=== PATIENT | female | born 1935 | race Caucasian/White ===

== ENCOUNTER 2024-01-29 00:13 | Emergency (ER) | payer MEDICARE, OTHER ==
[~2024-01-29] VITALS: Ht 167.6 cm; Wt 52.2 kg
[~2024-01-29 00:13] MED LIST: ALBU0.084 NEB; CAR3125T PO; DIG0125T PO; DIGO0.1262 PO; ENAL1TAB43 PO; FERR-7 PO; FURO1TAB33 PO; LEVO25TA6 PO; METO25TA5 PO; MULT-1018 PO; POT20T PO; RIVA20TA PO
[2024-01-29 01:55] LABS: INR 1.03 (0.9-1.15); Partial Thromboplastin Time 29.3 SEC (24.5-34.5); Prothrombin Time 10.9 sec (9.3-11.8)
[2024-01-29 03:31] VITALS: BP 111/78; RESP 22; TEMP 98.6; O2SAT 96
[2024-01-29 04:35] VITALS: PULSE 75
[2024-01-29] MEDS: BACITRACIN TOP OINT 1 UD PKG TOP ONE (05:22)
== END 2024-01-29 05:34 | disposition home or self-care (01) ==
LOC: ER 00:13 → EDBD 00:13 → ER 05:30
DX: S00.12XA Contusion of left eyelid and periocular area, initial encounter (principal); I48.91 Unspecified atrial fibrillation; D68.318 Other hemorrhagic disorder due to intrinsic circulating anticoagulants, antibodies, or inhibitors; I11.0 Hypertensive heart disease with heart failure; J44.9 Chronic obstructive pulmonary disease, unspecified; E11.9 Type 2 diabetes mellitus without complications; Z79.02 Long term (current) use of antithrombotics/antiplatelets; Z79.899 Other long term (current) drug therapy; Z90.49 Acquired absence of other specified parts of digestive tract; W01.0XXA Fall on same level from slipping, tripping and stumbling without subsequent striking against object, initial encounter; Y93.89 Activity, other specified; Y92.89 Other specified places as the place of occurrence of the external cause; Y99.8 Other external cause status
CPT/HCPCS: 36415; 70450; 85610; 85730; 93005

== ENCOUNTER 2024-04-09 17:40 | Inpatient (IN) | payer OTHER ==
[~2024-04-09] VITALS: Ht 167.6 cm; Wt 46.0 kg
[~2024-04-09 17:40] MED LIST changes: +ALL100T PO; +ASPI1TAB20 PO; +ATOR20TA50 PO; +FERR325T20 PO; +FOLI-119 PO; +GABA-1308 PO; +HYDR500C3 PO; +LEVO75TA6 PO
[2024-04-09 20:45] LABS: Basophils # (auto) 0.1 10 ^3/uL (0-0.2); Basophils % (auto) 0.6 % (0.0-2.0); Eosinophils # (auto) 0.2 10 ^3/uL (0-0.8); Hemoglobin 9.4 g/dL (12.2-16.2); Red Cell Distribution Width 16.2 % (11.8-14.3)
[2024-04-09 20:47] LABS: Eosinophils % (auto) 1.8 % (0.0-7.0); Hematocrit 28.9 % (36.0-46.0); Lymphocytes # (auto) 1.2 10 ^3/uL (0.4-5.4); Lymphocytes % (auto) 9.2 % (10.0-50.0); Mean Corpuscular Hemoglobin 38.7 pg (28.0-32.0); Mean Corpuscular Hgb Conc. 32.6 g/dL (32.0-36.0); Mean Corpuscular Volume 118.6 fL (80.0-100.0); Monocytes % (auto) 7.6 % (0.0-12.0); Neutrophils # (auto) 10.4 10 ^3/uL (1.6-8.6); Neutrophils % (auto) 80.8 % (37.0-80.0); Red Blood Cells 2.43 10^6/uL (4.0-5.20); White Blood Cell 12.9 10^3/uL (4.4-10.8)
[2024-04-09 20:56] LABS: Platelet Count (auto) 956 10^3/uL (140-450)
[2024-04-09 21:03] LABS: Alanine Aminotransferase 21 U/L (7-40); Alkaline Phosphatase 76 U/L (46-116); Anion Gap 9 (5-15); Aspartate Aminotransferase 26 U/L (13-40); BUN/Creatinine Ratio 12.7 (10.0-20.0); Blood Urea Nitrogen 24 mg/dL (9-23); Calcium 9.4 mg/dL (8.7-10.4); Carbon Dioxide 25 mmol/L (20-30); Chloride 111 mmol/L (98-107); Glucose 109 mg/dL (74-106); Partial Thromboplastin Time 26.5 SEC (24.5-34.5); Potassium 3.9 mmol/L (3.5-5.1); Prothrombin Time 10.6 sec (9.3-11.8); Sodium 145 mmol/L (136-145)
[2024-04-09 21:04] LABS: Albumin 4.4 g/dL (3.2-4.8); Bilirubin, Total 0.5 mg/dL (0.2-1.0); Total Protein 6.9 g/dL (5.7-8.2)
[2024-04-09 21:13] LABS: Large Platelets FEW; Macrocytosis Marked; Platelet Estimate Markedly Increased
[2024-04-09 21:30] VITALS: PULSE 95; RESP 20; O2SAT 100
[2024-04-10] MEDS: TEMAZEPAM 15 MG CAP PO ONE (03:44)
[2024-04-10 07:30] VITALS: PULSE 97; RESP 22; O2SAT 100
[2024-04-10] MEDS: ASPirin 325 MG TAB PO ONE (09:07)
[2024-04-10] MEDS: SODIUM CHLORIDE 0.9% 1,000 ML IV ONE (09:07)
[2024-04-10] MEDS: CLINDAMYCIN 300MG IV 50 ML IV ONE (09:08)
[2024-04-10] MEDS ORDERED: SODIUM CHLORIDE 0.9% 1,000 ML IV SCH (09:45)
[2024-04-10] MEDS ORDERED: MORPHINE SULFATE INJ 2 MG/ml SYRG IV PRN (09:45)
[2024-04-10] MEDS ORDERED: DOCUSATE SOD 100 MG CAP PO PRN (09:45)
[2024-04-10] MEDS ORDERED: NITROGLYCERIN 0.4 MG SL TAB SL PRN ×2 (09:45)
[2024-04-10] MEDS ORDERED: ONDANSETRON HCL 4 MG/2 ML VIAL IV PRN ×2 (09:45)
[2024-04-10] MEDS: ASPirin 81 mg TAB PO SCH (10:00)
[2024-04-10] MEDS: PIPERACILLIN-TAZOB 3.375GM 100 ML IV ONE (10:01)
[2024-04-10 11:13] LABS: INR 1.03 (0.9-1.15); Prothrombin Time 10.9 sec (9.3-11.8)
[2024-04-10] MEDS: CLINDAMYCIN 300MG IV 50 ML IV SCH (14:00)
[2024-04-10 15:51] LABS: Triglycerides 101 mg/dL (< 150)
[2024-04-10 15:52] LABS: LDL Cholesterol 50 mg/dL (< 100)
[2024-04-10 15:53] LABS: Cholesterol 119 mg/dL (< 200); HDL Cholesterol 52 mg/dL (40-59)
[2024-04-10] MEDS: SODIUM CHLORIDE 0.9% 1,000 ML IV SCH (16:03)
[2024-04-10 17:30] LABS: Urine Bacteria MANY /hpf (None Seen); Urine Blood Negative /uL (Negative); Urine Clarity Clear (Clear); Urine Color Yellow (Yellow); Urine Mucus FEW (None Seen); Urine Protein, UAD 1+ (Negative); Urine Specific Gravity 1.025 (1.001-1.035); Urine Urobilinogen Normal (Negative); Urine WBC 2 /hpf (0 - 5); Urine pH 5.5 (5.0-9.0)
[2024-04-10 19:25] VITALS: PULSE 97; RESP 20; O2SAT 96
[2024-04-10] MEDS: ATORVASTATIN 20 MG TAB PO SCH (22:55)
[2024-04-10] MEDS: APIXABAN 2.5 MG TAB PO SCH (22:55)
[2024-04-10] MEDS: METOPROLOL TARTRATE 25 MG TAB PO SCH (22:57)
[2024-04-11] VITALS (8 sets, daily range): BP systolic 133–157; BP diastolic 59–139; PULSE 76–121; RESP 16–20; TEMP 96.6–98.3; O2SAT 89–100
[2024-04-11] MEDS ORDERED: AMIO200T33 PO (01:59)
[2024-04-11] MEDS ORDERED: SERT25TA84 PO (02:00)
[2024-04-11] MEDS ORDERED: FOLITAB22 PO (02:03)
[2024-04-11 12:03] LABS: Basophils # (auto) 0.1 10 ^3/uL (0-0.2); Basophils % (auto) 0.5 % (0.0-2.0); Eosinophils # (auto) 0.1 10 ^3/uL (0-0.8); Eosinophils % (auto) 0.4 % (0.0-7.0); Hemoglobin 8.8 g/dL (12.2-16.2); Lymphocytes # (auto) 0.7 10 ^3/uL (0.4-5.4); Red Blood Cells 2.16 10^6/uL (4.0-5.20)
[2024-04-11 12:07] LABS: Hematocrit 26.4 % (36.0-46.0); Lymphocytes % (auto) 4.8 % (10.0-50.0); Mean Corpuscular Hemoglobin 40.6 pg (28.0-32.0); Mean Corpuscular Hgb Conc. 33.1 g/dL (32.0-36.0); Mean Corpuscular Volume 122.6 fL (80.0-100.0); Monocytes # (auto) 0.8 10 ^3/uL (0-1.3); Neutrophils # (auto) 12.2 10 ^3/uL (1.6-8.6); Neutrophils % (auto) 88.3 % (37.0-80.0); Red Cell Distribution Width 17.2 % (11.8-14.3); White Blood Cell 13.8 10^3/uL (4.4-10.8)
[2024-04-11 12:16] LABS: Platelet Count (auto) 947 10^3/uL (140-450)
[2024-04-11 12:24] LABS: Alanine Aminotransferase 22 U/L (7-40); Albumin 4.3 g/dL (3.2-4.8); Alkaline Phosphatase 84 U/L (46-116); Anion Gap 11 (5-15); Aspartate Aminotransferase 27 U/L (13-40); BUN/Creatinine Ratio 9.4 (10.0-20.0); Bilirubin, Total 0.7 mg/dL (0.2-1.0); Blood Urea Nitrogen 15 mg/dL (9-23); Calcium 9.2 mg/dL (8.7-10.4); Carbon Dioxide 20 mmol/L (20-31); Chloride 113 mmol/L (98-107); Cholesterol 133 mg/dL (< 200); Glucose 112 mg/dL (74-106); HDL Cholesterol 59 mg/dL (40-59); LDL Cholesterol 53 mg/dL (< 100); Potassium 3.7 mmol/L (3.5-5.1); Sodium 144 mmol/L (136-145); Triglycerides 124 mg/dL (< 150)
[2024-04-11 12:25] LABS: Total Protein 6.9 g/dL (5.7-8.2)
[2024-04-11] MEDS: cefTRIAXone 1GM/50ML D5W 50 ML IV SCH (13:25)
[2024-04-11] MEDS: METOPROLOL TARTRATE 25 MG TAB PO SCH (23:54)
[2024-04-12] VITALS (7 sets, daily range): BP systolic 135–148; BP diastolic 69–87; PULSE 66–107; RESP 17–20; TEMP 97.4–98; O2SAT 91–99
[2024-04-12] MEDS: ACETAMINOPHEN 325 MG TAB PO PRN (00:25)
[2024-04-12] MEDS: EMPAGLIFLOZIN 10 MG TAB PO SCH (09:20)
[2024-04-12] MEDS: POTASSIUM EFFERVESENT TAB 25 MEQ PO ONE (09:21)
[2024-04-12 11:15] LABS: Red Blood Cells 2.36 10^6/uL (4.0-5.20)
[2024-04-12 11:19] LABS: Basophils # (auto) 0.1 10 ^3/uL (0-0.2); Basophils % (auto) 0.5 % (0.0-2.0); Eosinophils # (auto) 0.1 10 ^3/uL (0-0.8); Eosinophils % (auto) 0.3 % (0.0-7.0); Hematocrit 29.5 % (36.0-46.0); Hemoglobin 9.4 g/dL (12.2-16.2); Lymphocytes # (auto) 0.5 10 ^3/uL (0.4-5.4); Lymphocytes % (auto) 2.7 % (10.0-50.0); Mean Corpuscular Hemoglobin 39.8 pg (28.0-32.0); Mean Corpuscular Hgb Conc. 31.8 g/dL (32.0-36.0); Monocytes # (auto) 1.6 10 ^3/uL (0-1.3); Monocytes % (auto) 7.6 % (0.0-12.0); Neutrophils # (auto) 18.2 10 ^3/uL (1.6-8.6); Neutrophils % (auto) 88.9 % (37.0-80.0); Nucleated Red Blood Cells % 0.3 %; Red Cell Distribution Width 17.7 % (11.8-14.3); White Blood Cell 20.5 10^3/uL (4.4-10.8)
[2024-04-12 11:23] LABS: Chloride 111 mmol/L (98-107); Potassium 4.3 mmol/L (3.5-5.1); Sodium 142 mmol/L (136-145)
[2024-04-12 11:24] LABS: Anion Gap 11 (5-15); Carbon Dioxide 20 mmol/L (20-31)
[2024-04-12 11:25] LABS: Platelet Count (auto) 971 10^3/uL (140-450)
[2024-04-12 11:29] LABS: BUN/Creatinine Ratio 11.5 (10.0-20.0); Blood Urea Nitrogen 18 mg/dL (9-23); Glucose 120 mg/dL (74-106)
[2024-04-12 11:52] LABS: Macrocytosis Moderate; Platelet Estimate Markedly Increased
[2024-04-13] VITALS (8 sets, daily range): BP systolic 106–129; BP diastolic 51–84; PULSE 93–105; RESP 16–18; TEMP 97.1–98.2; O2SAT 0–98
[2024-04-14] VITALS (8 sets, daily range): BP systolic 130–159; BP diastolic 48–109; PULSE 71–104; RESP 16–20; TEMP 97.7–98.7; O2SAT 92–99
[2024-04-15 08:00] VITALS: PULSE 101; PULSE 92; RESP 18; O2SAT 96
[2024-04-15 09:26] VITALS: BP 123/64; PULSE 101; RESP 17; TEMP 98; O2SAT 96
[2024-04-15] MEDS ORDERED: LEVO500T91 PO (12:33)
[2024-04-15 13:00] VITALS: BP 133/88; PULSE 75; RESP 20; TEMP 98.2; O2SAT 99
[2024-04-15 16:48] VITALS: BP 141/71; PULSE 65; RESP 19; TEMP 98; O2SAT 89
[2024-04-18] MEDS ORDERED: SERT-206 PO (17:57)
== END 2024-04-15 18:08 | disposition home or self-care (01) | DRG 871 ==
LOC: ER 17:40 → EDBD 17:40 → TELE 04-10 09:45 → TELE-WESTW 04-10 21:51
PROVIDERS: ADMIT Nurse Practitioner Family; ATTEND Family Medicine
DX: A41.9 Sepsis, unspecified organism (principal); I50.23 Acute on chronic systolic (congestive) heart failure; N39.0 Urinary tract infection, site not specified; I13.0 Hypertensive heart and chronic kidney disease with heart failure and stage 1 through stage 4 chronic kidney disease, or unspecified chronic kidney disease; I42.0 Dilated cardiomyopathy; N17.9 Acute kidney failure, unspecified; D75.839 Thrombocytosis, unspecified; E11.22 Type 2 diabetes mellitus with diabetic chronic kidney disease; I07.1 Rheumatic tricuspid insufficiency; I27.20 Pulmonary hypertension, unspecified; I48.0 Paroxysmal atrial fibrillation; J44.9 Chronic obstructive pulmonary disease, unspecified; S01.01XA Laceration without foreign body of scalp, initial encounter; F03.90 Unspecified dementia, unspecified severity, without behavioral disturbance, psychotic disturbance, mood disturbance, and anxiety; W18.39XA Other fall on same level, initial encounter; D63.8 Anemia in other chronic diseases classified elsewhere; E78.00 Pure hypercholesterolemia, unspecified; E03.9 Hypothyroidism, unspecified; Z90.49 Acquired absence of other specified parts of digestive tract; Y93.89 Activity, other specified; Y92.89 Other specified places as the place of occurrence of the external cause; Y99.8 Other external cause status; Z79.01 Long term (current) use of anticoagulants; E11.65 Type 2 diabetes mellitus with hyperglycemia; N18.9 Chronic kidney disease, unspecified
CPT/HCPCS: 36415; 70450; 71045; 80048; 80053; 80061; 80162; 81001; 83605; 83735; 83880; 84443; 84484; 85025; 85610; 85730; 87040; 93005; 93306; 97110; 97116; 97163; 97530; G0378; J2543; J3490

== ENCOUNTER 2024-04-20 17:24 | Inpatient (IN) | payer OTHER ==
[~2024-04-20] VITALS: Ht 165.1 cm; Wt 44.8 kg
[~2024-04-20 17:24] MED LIST changes: -ALBU0.084 NEB; +AMIO200T33 PO; -CAR3125T PO; -DIG0125T PO; -DIGO0.1262 PO; -ENAL1TAB43 PO; -FERR-7 PO; -FURO1TAB33 PO; -LEVO25TA6 PO; +LEVO500T91 PO; -MULT-1018 PO; -POT20T PO; -RIVA20TA PO; +SERT-206 PO; +SERT25TA84 PO
[2024-04-20 18:56] VITALS: PULSE 117; RESP 22
[2024-04-20 19:35] VITALS: PULSE 112; RESP 20; O2SAT 92
[2024-04-20 19:36] LABS: Basophils # (auto) 0.1 10 ^3/uL (0-0.2); Basophils % (auto) 0.4 % (0.0-2.0); Eosinophils # (auto) 0 10 ^3/uL (0-0.8); Hematocrit 26.5 % (36.0-46.0); Hemoglobin 8.5 g/dL (12.2-16.2); Lymphocytes # (auto) 0.8 10 ^3/uL (0.4-5.4); Lymphocytes % (auto) 5.2 % (10.0-50.0); Mean Corpuscular Hemoglobin 38.1 pg (28.0-32.0); Mean Corpuscular Volume 119.1 fL (80.0-100.0); Monocytes # (auto) 0.8 10 ^3/uL (0-1.3); Monocytes % (auto) 5.4 % (0.0-12.0); Nucleated Red Blood Cells % 0.3 %; Platelet Count (auto) 587 10^3/uL (140-450); Red Blood Cells 2.23 10^6/uL (4.0-5.20); Red Cell Distribution Width 18.3 % (11.8-14.3); White Blood Cell 14.6 10^3/uL (4.4-10.8)
[2024-04-20 19:46] LABS: Alanine Aminotransferase 56 U/L (7-40); Albumin 3.8 g/dL (3.2-4.8); Alkaline Phosphatase 91 U/L (46-116); Anion Gap 14 (5-15); Aspartate Aminotransferase 78 U/L (13-40); BUN/Creatinine Ratio 11.4 (10.0-20.0); Bilirubin, Total 0.9 mg/dL (0.2-1.0); Blood Urea Nitrogen 32 mg/dL (9-23); Calcium 9.1 mg/dL (8.7-10.4); Carbon Dioxide 19 mmol/L (20-31); Chloride 115 mmol/L (98-107); Glucose 107 mg/dL (74-106); Lipase 44 U/L (12-53); Potassium 4.4 mmol/L (3.5-5.1); Sodium 148 mmol/L (136-145); Total Protein 6.1 g/dL (5.7-8.2)
[2024-04-20 19:56] LABS: Anisocytosis Slight
[2024-04-20 19:57] LABS: Large Platelets FEW; Macrocytosis Moderate; Ovalocytes FEW; Platelet Estimate Increa; Polychromasia Slight; Stomatocytes Few
[2024-04-21] VITALS (10 sets, daily range): BP systolic 96–150; BP diastolic 68–101; PULSE 63–120; RESP 17–22; TEMP 95.1–97.7; O2SAT 92–97
[2024-04-21] MEDS ORDERED: IPRATROPIUM BROM 0.5 MG/2.5ML INH SOL NEB PRN (00:15)
[2024-04-21] MEDS ORDERED: ALBUTEROL SULF 2.5 MG/0.5ML(0.5%) NEB SOLN NEB PRN (00:15)
[2024-04-21] MEDS ORDERED: VANCOMYCIN PER PHARMACY 0 MG IV SCH (00:15)
[2024-04-21 01:49] LABS: INR 1.41 (0.9-1.15); Partial Thromboplastin Time 33.9 SEC (24.5-34.5); Prothrombin Time 14.6 sec (9.3-11.8)
[2024-04-21 02:04] LABS: Urine Bacteria FEW /hpf (None Seen); Urine Blood 1+ /uL (Negative); Urine Clarity Clear (Clear); Urine Color Yellow (Yellow); Urine Hyaline Cast MANY /lpf (0 - 2); Urine Mucus FEW (None Seen); Urine Protein, UAD 1+ (Negative); Urine Specific Gravity 1.023 (1.001-1.035); Urine Urobilinogen Normal (Negative); Urine WBC 4 /hpf (0 - 5); Urine pH 5.5 (5.0-9.0)
[2024-04-21] MEDS: LACTATED RINGER'S 500 ML IV ONE (02:08)
[2024-04-21] MEDS: MEROPENEM 500MG IVPB 50 ML IV ONE (04:28)
[2024-04-21 04:55] LABS: Chloride 116 mmol/L (98-107); Potassium 3.8 mmol/L (3.5-5.1); Sodium 148 mmol/L (136-145)
[2024-04-21 04:56] LABS: Anion Gap 14 (5-15); Carbon Dioxide 18 mmol/L (20-31)
[2024-04-21] MEDS: VANCOMYCIN 1GM/200ML PREMIX 200 ML IV ONE (05:00)
[2024-04-21 05:01] LABS: BUN/Creatinine Ratio 10.9 (10.0-20.0); Blood Urea Nitrogen 30 mg/dL (9-23); Glucose 89 mg/dL (74-106)
[2024-04-21 05:03] LABS: % Iron Saturation 60.9 % (15-50)
[2024-04-21 05:07] LABS: Ferritin 1027.2 ng/mL (10-291)
[2024-04-21 05:19] LABS: Rapid Influenza A Negative (Negative); Rapid Influenza B Negative (Negative)
[2024-04-21] MEDS: InsuLIN REG 1unit/0.01ml Soln (100units/ml) SC SCH (06:00)
[2024-04-21] MEDS: ACCU-CHEK COMFORT CURVE STRIP VI SCH (07:12)
[2024-04-21 08:33] LABS: Hematocrit 30.1 % (36.0-46.0); Hemoglobin 9.6 g/dL (12.2-16.2); Mean Corpuscular Hemoglobin 38.9 pg (28.0-32.0); Mean Corpuscular Hgb Conc. 31.9 g/dL (32.0-36.0); Mean Corpuscular Volume 121.9 fL (80.0-100.0); Platelet Count (auto) 577 10^3/uL (140-450); Red Blood Cells 2.47 10^6/uL (4.0-5.20); Red Cell Distribution Width 19.1 % (11.8-14.3); White Blood Cell 15.9 10^3/uL (4.4-10.8)
[2024-04-21 08:35] LABS: Band Neutrophils % (manual) 0; Basophils % (manual) 0 (0.0-2.0); Blast Cells 0; Eosinophils % (manual) 0 (0-7); Metamyelocytes % 0; Myelocytes % 0; Promyelocytes % 0; Reactive Lymphocytes 0
[2024-04-21] MEDS: MEROPENEM 500MG IVPB 50 ML IV SCH (09:56)
[2024-04-21 11:13] LABS: Anisocytosis Slight; Lymphocytes % (manual) 1 (10.0-50.0); Macrocytosis Moderate; Monocytes % (manual) 8 (0-12); Platelet Estimate Increased
[2024-04-21 11:40] LABS: Folate (Folic Acid) > 48.00 ng/mL (>5.38)
[2024-04-21 11:44] LABS: CRP High Sensitivity 0.36 mg/dL (<1.0); Magnesium 2.6 mg/dL (1.6-2.6)
[2024-04-21 11:46] LABS: Phosphorus 5.2 mg/dL (2.4-5.1)
[2024-04-21 12:17] LABS: Uric Acid 7.8 mg/dL (3.1-7.8)
[2024-04-21 17:36] LABS: Erythrocyte Sedimentation Rate 12 mm/hr (0-20)
[2024-04-21] MEDS: DEXTROSE (50%) 50ML SYRG IV PRN (18:19)
[2024-04-21] MEDS: APIXABAN 2.5 MG TAB PO SCH (21:46)
[2024-04-22] VITALS (10 sets, daily range): BP systolic 101–132; BP diastolic 56–81; PULSE 50–101; RESP 16–19; TEMP 97–98.8; O2SAT 92–96
[2024-04-22 07:37] LABS: Hemoglobin 8.7 g/dL (12.2-16.2)
[2024-04-22 07:38] LABS: Chloride 121 mmol/L (98-107); Potassium 3.8 mmol/L (3.5-5.1)
[2024-04-22 07:39] LABS: Anion Gap 9 (5-15); Carbon Dioxide 23 mmol/L (20-31)
[2024-04-22 07:40] LABS: Basophils # (auto) 0 10 ^3/uL (0-0.2); Basophils % (auto) 0.3 % (0.0-2.0); Eosinophils # (auto) 0 10 ^3/uL (0-0.8); Eosinophils % (auto) 0.4 % (0.0-7.0); Lymphocytes # (auto) 0.5 10 ^3/uL (0.4-5.4); Lymphocytes % (auto) 5.3 % (10.0-50.0); Mean Corpuscular Hemoglobin 39.5 pg (28.0-32.0); Mean Corpuscular Hgb Conc. 32.3 g/dL (32.0-36.0); Mean Corpuscular Volume 122.1 fL (80.0-100.0); Monocytes # (auto) 0.6 10 ^3/uL (0-1.3); Monocytes % (auto) 6.4 % (0.0-12.0); Neutrophils # (auto) 8.4 10 ^3/uL (1.6-8.6); Neutrophils % (auto) 87.6 % (37.0-80.0); Nucleated Red Blood Cells % 0.3 %; Platelet Count (auto) 484 10^3/uL (140-450); Red Blood Cells 2.21 10^6/uL (4.0-5.20); White Blood Cell 9.6 10^3/uL (4.4-10.8)
[2024-04-22 07:43] LABS: INR 1.25 (0.9-1.15); Partial Thromboplastin Time 31.9 SEC (24.5-34.5); Red Cell Distribution Width 18.7 % (11.8-14.3)
[2024-04-22 07:44] LABS: BUN/Creatinine Ratio 14.3 (10.0-20.0); Blood Urea Nitrogen 37 mg/dL (9-23); Glucose 90 mg/dL (74-106)
[2024-04-22 07:45] LABS: Sodium 153 mmol/L (136-145)
[2024-04-22] MEDS: D5W 5% 1,000 ML IV SCH (09:36)
[2024-04-22] MEDS: AMIODARONE HCL 200 MG TAB PO SCH (09:44)
[2024-04-22] MEDS: METOPROLOL SUCCINATE XL 50 MG TAB PO SCH (09:45)
[2024-04-22] MEDS: hydroxyUREA 500 MG CAP PO SCH (09:45)
[2024-04-22] MEDS ORDERED: ENOXAPARIN SOD 60 MG/0.6 ML SYRINGE SC SCH (10:00)
[2024-04-22] MEDS: VANCOMYCIN 500 MG in D5W 5% 100 ML IV ONE (17:36)
[2024-04-23] VITALS (11 sets, daily range): BP systolic 117–162; BP diastolic 37–90; PULSE 73–103; RESP 16–19; TEMP 96.9–97.9; O2SAT 90–99
[2024-04-23 05:22] LABS: Basophils # (auto) 0 10 ^3/uL (0-0.2); Basophils % (auto) 0.5 % (0.0-2.0); Eosinophils # (auto) 0.1 10 ^3/uL (0-0.8); Hemoglobin 8.5 g/dL (12.2-16.2); Lymphocytes # (auto) 0.6 10 ^3/uL (0.4-5.4); Monocytes # (auto) 0.7 10 ^3/uL (0-1.3); Monocytes % (auto) 7.6 % (0.0-12.0)
[2024-04-23 05:25] LABS: Eosinophils % (auto) 0.9 % (0.0-7.0); Hematocrit 26.1 % (36.0-46.0); Lymphocytes % (auto) 6.6 % (10.0-50.0); Mean Corpuscular Hemoglobin 39.9 pg (28.0-32.0); Mean Corpuscular Hgb Conc. 32.5 g/dL (32.0-36.0); Mean Corpuscular Volume 122.9 fL (80.0-100.0); Neutrophils # (auto) 7.8 10 ^3/uL (1.6-8.6); Neutrophils % (auto) 84.4 % (37.0-80.0); Nucleated Red Blood Cells % 0.3 %; Platelet Count (auto) 430 10^3/uL (140-450); Red Blood Cells 2.13 10^6/uL (4.0-5.20); Red Cell Distribution Width 18.7 % (11.8-14.3); White Blood Cell 9.2 10^3/uL (4.4-10.8)
[2024-04-23 07:27] LABS: Chloride 121 mmol/L (98-107); Potassium 3.4 mmol/L (3.5-5.1); Sodium 151 mmol/L (136-145)
[2024-04-23 07:28] LABS: Anion Gap 9 (5-15); Calcium 8.7 mg/dL (8.7-10.4); Carbon Dioxide 21 mmol/L (20-31)
[2024-04-23 07:33] LABS: BUN/Creatinine Ratio 12.3 (10.0-20.0); Glucose 118 mg/dL (74-106)
[2024-04-23 07:41] LABS: Blood Urea Nitrogen 26 mg/dL (9-23)
[2024-04-23] MEDS: POTASSIUM CHL 20 Meq TABLET PO ONE (09:37)
[2024-04-23] MEDS ORDERED: ALBUTEROL SULF 2.5 MG/0.5ML(0.5%) NEB SOLN NEB ONE (13:45)
[2024-04-23] MEDS: VANCOMYCIN 500 MG in D5W 5% 100 ML IV ONE (14:52)
[2024-04-23 20:08] LABS: Basophils # (auto) 0 10 ^3/uL (0-0.2); Eosinophils # (auto) 0.1 10 ^3/uL (0-0.8); Eosinophils % (auto) 1.4 % (0.0-7.0); Lymphocytes # (auto) 0.5 10 ^3/uL (0.4-5.4); Lymphocytes % (auto) 6.9 % (10.0-50.0); Monocytes # (auto) 0.5 10 ^3/uL (0-1.3); Nucleated Red Blood Cells % 0.2 %
[2024-04-23 20:10] LABS: Basophils % (auto) 0.5 % (0.0-2.0); Hemoglobin 9.1 g/dL (12.2-16.2); Mean Corpuscular Hgb Conc. 31.2 g/dL (32.0-36.0); Mean Corpuscular Volume 124.7 fL (80.0-100.0); Neutrophils % (auto) 84.2 % (37.0-80.0); Platelet Count (auto) 375 10^3/uL (140-450); Red Blood Cells 2.33 10^6/uL (4.0-5.20); Red Cell Distribution Width 19.4 % (11.8-14.3); White Blood Cell 7.1 10^3/uL (4.4-10.8)
[2024-04-23 20:17] LABS: Chloride 116 mmol/L (98-107); Potassium 3.2 mmol/L (3.5-5.1)
[2024-04-23 20:18] LABS: Anion Gap 7 (5-15); Carbon Dioxide 23 mmol/L (20-31)
[2024-04-23 20:19] LABS: Calcium 8.5 mg/dL (8.7-10.4)
[2024-04-23 20:23] LABS: Glucose 129 mg/dL (74-106)
[2024-04-23 20:24] LABS: BUN/Creatinine Ratio 12.1 (10.0-20.0); Blood Urea Nitrogen 21 mg/dL (9-23); Sodium 146 mmol/L (136-145)
[2024-04-24] VITALS (10 sets, daily range): BP systolic 98–132; BP diastolic 56–93; PULSE 72–109; RESP 16–18; TEMP 97.9–98.3; O2SAT 90–97
[2024-04-24 07:26] LABS: Calcium 8.5 mg/dL (8.7-10.4); Chloride 116 mmol/L (98-107); Potassium 3.4 mmol/L (3.5-5.1); Sodium 146 mmol/L (136-145)
[2024-04-24 07:27] LABS: Anion Gap 6 (5-15); Carbon Dioxide 24 mmol/L (20-31)
[2024-04-24 07:33] LABS: BUN/Creatinine Ratio 12.2 (10.0-20.0); Blood Urea Nitrogen 20 mg/dL (9-23); Glucose 119 mg/dL (74-106)
[2024-04-24] MEDS: POTASSIUM CHL 20MEQ/100ML 100 ML IV SCH (09:00)
[2024-04-24] MEDS ORDERED: FUROSEMIDE 20 MG/2 ML VIAL IV SCH (10:00)
[2024-04-24] MEDS: POTASSIUM EFFERVESENT TAB 25 MEQ PO ONE ×2 (12:30→14:22)
[2024-04-25 01:00] VITALS: BP 131/84; PULSE 100; RESP 18; TEMP 97.3; O2SAT 94
[2024-04-25 05:00] VITALS: BP 154/98; PULSE 99; RESP 18; TEMP 98.5; O2SAT 97
[2024-04-25 08:00] VITALS: PULSE 88; RESP 18; O2SAT 94
[2024-04-25 08:59] VITALS: BP_SYST 114; BP_SYST 140; BP_DIAS 76; BP_DIAS 89; PULSE 72; PULSE 87; RESP 16; RESP 18; TEMP 97.8; TEMP 98.3; O2SAT 98
[2024-04-25 12:41] VITALS: BP 110/57; PULSE 92; RESP 20; TEMP 96.8; O2SAT 98
[2024-04-25 12:44] VITALS: BP 130/68; PULSE 80; TEMP 36
== END 2024-04-25 15:00 | disposition home health service (06) | DRG 640 ==
LOC: EDBD 17:24 → ER 17:24 → TELE 23:50 → TELE-WESTW 04-21 05:21 → WEST WING 04-25 02:09
PROVIDERS: ADMIT Internal Medicine; ATTEND Internal Medicine
DX: E87.0 Hyperosmolality and hypernatremia (principal); G93.41 Metabolic encephalopathy; I21.A1 Myocardial infarction type 2; I50.23 Acute on chronic systolic (congestive) heart failure; N17.0 Acute kidney failure with tubular necrosis; N39.0 Urinary tract infection, site not specified; I13.0 Hypertensive heart and chronic kidney disease with heart failure and stage 1 through stage 4 chronic kidney disease, or unspecified chronic kidney disease; I42.0 Dilated cardiomyopathy; N18.4 Chronic kidney disease, stage 4 (severe); E87.8 Other disorders of electrolyte and fluid balance, not elsewhere classified; J44.9 Chronic obstructive pulmonary disease, unspecified; I27.20 Pulmonary hypertension, unspecified; E78.5 Hyperlipidemia, unspecified; I48.0 Paroxysmal atrial fibrillation; D53.9 Nutritional anemia, unspecified; D75.839 Thrombocytosis, unspecified; F03.C0 Unspecified dementia, severe, without behavioral disturbance, psychotic disturbance, mood disturbance, and anxiety; E11.22 Type 2 diabetes mellitus with diabetic chronic kidney disease; I08.1 Rheumatic disorders of both mitral and tricuspid valves; E87.6 Hypokalemia; E03.9 Hypothyroidism, unspecified; D50.9 Iron deficiency anemia, unspecified; I50.82 Biventricular heart failure; Z90.49 Acquired absence of other specified parts of digestive tract; Z79.82 Long term (current) use of aspirin; Z79.899 Other long term (current) drug therapy
CPT/HCPCS: 36415; 70450; 71045; 80048; 80053; 80202; 81001; 82550; 82565; 82607; 82728; 82746; 82962; 83540; 83550; 83605; 83615; 83690; 83735; 83880; 84100; 84443; 84484; 84550; 85007; 85025; 85027; 85379; 85610; 85652; 85730; 86141; 87040; 87081; 87086; 87804; 93970; 96361; 96365; 96367; 97110; 97163; 97530; G0378; J2185; J3480; J7060